=== PATIENT | male | born 1970 | race Two or more races ===

== ENCOUNTER 2017-03-14 01:58 | Emergency (ER) | payer OTHER ==
[2017-03-14] MEDS ORDERED: Ondansetron INJ* 2 MG/ML VIAL IV ONE (02:29)
[2017-03-14] MEDS ORDERED: Ketorolac INJ* 30 MG/ML 1 ML VIAL IV PUSH ONE (02:29)
[2017-03-14] MEDS ORDERED: NS 0.9% 1000 ML* 1,000 ML IV ONE ×2 (02:29→04:05)
[2017-03-14 02:56] LABS: Urine Bacteria Absent (Absent); Urine Bilirubin Negative (Negative); Urine Glucose Negative (Negative); Urine Nitrite Negative (Negative)
[2017-03-14 03:01] LABS: Hematocrit 44 % (42-52); Hemoglobin 14.6 g/dl (14.0-18.0); Mean Corpuscular HGB Conc 33 g/dl (31-36); Mean Corpuscular Hemoglobin 29 pg (27-31); Mean Corpuscular Volume 89 fL (80-94); Mean Platelet Volume 10 um3 (7.4-10.4); Red Blood Count 4.99 10^6/ul (4.0-5.4); Red Cell Distribution Width 14 % (10.5-15); White Blood Count 10.2 10^3/ul (3.5-10.8)
[2017-03-14 03:03] LABS: Albumin 4.5 g/dL (3.2-5.2); BUN/Creatinine Ratio 19.4 (8-20); Calcium 9.3 mg/dL (8.6-10.3); EGFR African American 99.6 (>60); EGFR Non-African American 77.4 (>60); Globulin 2.4 g/dL (2-4); Potassium 3.6 mmol/L (3.5-5.0); Total Bilirubin 0.6 mg/dL (0.2-1.0); Total Protein 6.9 g/dL (6.4-8.9)
[2017-03-14] MEDS ORDERED: Morphine INJ* 4 MG/ML 1 ML SYRINGE IV ONE (04:05)
[2017-03-14] MEDS ORDERED: oxyCODONE/Acetamin 5/325 MG* TAB PO ONE (05:02)
--- NOTE | 2017-03-14 05:02 | ED ---
Pura Savage Thomas, scribed for Colt Segal MD on 03/14/17 at 0230 . Abdominal Pain/Male - HPI Summary HPI Summary: The pt is a 47 y/o M presenting to the ED c/o flank pain that began at 00:00. He rates the pain 8/10. He additionally c/o nausea. The pt was driving back from [facility] when the pain suddenly began. The pt denies a Hx of kidney stones. NKDA. - History of Current Complaint Chief Complaint: EDFlankPain Stated Complaint: RIGHT FLANK PAIN Hx Obtained From: Patient Onset/Duration: Sudden Onset, Lasting Hours - began 00:00, Still Present Timing: Constant Pain Intensity: 8 Pain Scale Used: 0-10 Numeric Location: Flank Aggravating Factor(s): Nothing Alleviating Factor(s): Nothing Associated Signs And Symptoms: Positive: Nausea - Allergies/Home Medications Allergies/Adverse Reactions: Allergies Allergy/AdvReac Type Severity Reaction Status Date / Time No Known Allergies Allergy Verified 03/14/17 02:43 PMH/Surg Hx/FS Hx/Imm Hx Previously Healthy: Yes Sensory History: Denies: Hx Legally Blind EENT History: Denies: Hx Deafness Infectious Disease History: No Infectious Disease History: Denies: Traveled Outside the [place] in Last 30 Days - Family History Known Family History: Negative: Cardiac Disease, Diabetes - Social History Occupation: Employed Full-time Lives: With Family Review of Systems Constitutional: Negative Negative: Fever Eyes: Negative ENT: Negative Cardiovascular: Negative Respiratory: Negative Positive: Nausea, Other - POS: flank pain, sudden onset Genitourinary: Negative Musculoskeletal: Negative Skin: Negative Neurological: Negative Psychological: Normal All Other Systems Reviewed And Are Negative: Yes Physical Exam Triage Information Reviewed: Yes Vital Signs On Initial Exam: Initial Vitals Temp Pulse Resp BP Pulse Ox 98.3 F 70 18 114/70 99 03/14/17 02:06 03/14/17 02:06 03/14/17 02:06 03/14/17 02:06 03/14/17 02:06 Vital Signs Reviewed: Yes Appearance: Positive: Well-Appearing, Pain Distress - moderate discomfort Skin: Positive: Warm Eyes: Positive: MELINDA ENT: Positive: Hearing grossly normal Neck: Positive: Supple Respiratory/Lung Sounds: Positive: Breath Sounds Present Cardiovascular: Positive: RRR Abdomen Description: Positive: Nontender, Soft. Negative: CVA Tenderness (R), CVA Tenderness (L) Bowel Sounds: Positive: Present Musculoskeletal: Positive: Strength/ROM Intact Neurological: Positive: Sensory/Motor Intact, Normal Gait Diagnostics - Vital Signs Vital Signs Temp Pulse Resp BP Pulse Ox 03/14/17 02:06 98.3 F 70 18 114/70 99 - Laboratory Lab Results: Lab Results 03/14/17 03/14/17 03/14/17 Range/Units 02:15 02:40 02:40 WBC 10.2 (3.5-10.8) 10^3/ul RBC 4.99 (4.0-5.4) 10^6/ul Hgb 14.6 (14.0-18.0) g/dl Hct 44 (42-52) % MCV 89 (80-94) fL MCH 29 (27-31) pg MCHC 33 (31-36) g/dl RDW 14 (10.5-15) % Plt Count 205 (150-450) 10^3/ul MPV 10 (7.4-10.4) um3 Neut % (Auto) 82.0 (38-83) % Lymph % (Auto) 12.3 L (25-47) % [place] % (Auto) 4.6 (1-9) % Eos % (Auto) 0.4 (0-6) % Baso % (Auto) 0.7 (0-2) % Absolute Neuts (auto) 8.4 H (1.5-7.7) 10^3/ul Absolute Lymphs (auto) 1.3 (1.0-4.8) 10^3/ul Absolute Monos (auto) 0.5 (0-0.8) 10^3/ul Absolute Eos (auto) 0 (0-0.6) 10^3/ul Absolute Basos (auto) 0.1 (0-0.2) 10^3/ul Absolute Nucleated RBC 0.01 10^3/ul Nucleated RBC % 0 Sodium 135 (133-145) mmol/L Potassium 3.6 (3.5-5.0) mmol/L Chloride 102 (101-111) mmol/L Carbon Dioxide 24 (22-32) mmol/L Anion Gap 9 (2-11) mmol/L BUN 20 (6-24) mg/dL Creatinine 1.03 (0.67-1.17) mg/dL Est GFR ( Amer) 99.6 (>60) Est GFR (Non-Af Amer) 77.4 (>60) BUN/Creatinine Ratio 19.4 (8-20) Glucose 142 H (70-100) mg/dL Calcium 9.3 (8.6-10.3) mg/dL Total Bilirubin 0.60 (0.2-1.0) mg/dL AST 16 (13-39) U/L ALT 13 (7-52) U/L Alkaline Phosphatase 61 (34-104) U/L Total Protein 6.9 (6.4-8.9) g/dL Albumin 4.5 (3.2-5.2) g/dL Globulin 2.4 (2-4) g/dL Albumin/Globulin Ratio 1.9 (1-3) Urine Color Yellow Urine Appearance Cloudy Urine pH 6.0 (5-9) Ur Specific [place] 1.025 (1.010-1.030) Urine Protein 1+(30 mg/dl) H (Negative) Urine Ketones Trace H (Negative) Urine Blood 3+ H (Negative) Urine Nitrate Negative (Negative) Urine Bilirubin Negative (Negative) Urine Urobilinogen Negative (Negative) Ur Leukocyte Esterase Trace H (Negative) Urine WBC (Auto) Trace(0-5/hpf) (Absent) Urine RBC (Auto) 3+(>10/hpf) H (Absent) Ur Squamous Epith Cells Present H (Absent) Urine Bacteria Absent (Absent) Urine Glucose Negative (Negative) Result Diagrams: 03/14/17 02:40 03/14/17 02:40 Lab Statement: Any lab studies that have been ordered have been reviewed, and results considered in the medical decision making process. - CT CT Abd/Pel CT Interpretation: Positive (See Comments) - 0.6 cm cyst within the R lobe of the liver. Mild right obstructive uropathy that is secondary to a 0.4 cm stone at the right uretovesical junction. Small nonobstructing right renal stone. Normal appendix. No evidence of intestinal obstruction, performtion, colitis, pancreatitis, acute diverticular disease, or an intra-abdominal or pelvic abscess. Large colonic izabella burden. No free fluid. Tiny fat-containing umbilical hernia. Spina bifida occulta at L5. CT Interpretation Completed By: Radiologist Re-Evaluation - Re-Evaluation First Eval Re-Evaluation Time: 05:00 Change: Improved - results d/w pt Abdominal Pain Fem Course/Dx - Diagnoses Provider Diagnoses: Kidney stone Discharge - Discharge Plan Condition: Improved Disposition: HOME Prescriptions: Tamsulosin CAP* [Flomax CAP*] 0.4 mg PO BEDTIME #7 cap Patient Education Materials: Kidney Stones (ED) Referrals: Philippe Dean MD [Medical Doctor] - 3 Days The documentation as recorded by the Pura jane Thomas accurately reflects the service I personally performed and the decisions made by me, Colt Segal MD.
[2017-03-14 05:22] VITALS: BP 122/73
--- NOTE | 2017-03-14 08:13 | RAD ---
CLINICAL HISTORY: Right flank pain COMPARISON: None TECHNIQUE: Multiple contiguous axial CT scans were obtained of the abdomen and pelvis, without intravenous contrast enhancement. Coronal and sagittal multiplanar reformations are submitted for review. Oral contrast was not administered. FINDINGS: The study is limited by the lack of intravenous contrast. This limits evaluation of the solid organs and vasculature. LUNG BASES: The lung bases are clear. LIVER: The liver is normal in shape, size, contour, and attenuation. BILE DUCTS: There is no intrahepatic or extrahepatic biliary dilatation. GALLBLADDER: The gallbladder is normal, without pericholecystic inflammatory change. PANCREAS: The pancreas is normal, without mass or ductal dilatation. SPLEEN: Normal in size and appearance. UPPER GI TRACT: Evaluation of the gastrointestinal tract is limited by incomplete gastric distention. The upper GI tract is unremarkable. SMALL BOWEL AND MESENTERY: The small bowel is normal in contour, course, and caliber. There is no obstruction or dilatation. COLON: The colon is normal in contour, course, caliber. There is no pericolonic inflammatory change. There is a tubular, vermiform, hollow viscus that is blind ending, and originates from the cecum, consistent with a normal appendix. There is no periappendiceal inflammatory change. This is best seen on axial images 104 through 109 ADRENALS: Normal bilaterally. KIDNEYS: There is a 0.3 cm calculus of the midpole of the right kidney. There is a 0.4 cm focus of the right UVJ. There is minimal right hydroureter.. BLADDER: The bladder is smooth in contour. PELVIC ORGANS: The prostate gland is normal. The seminal vesicles are symmetric. AORTA: The aorta is normal. IVC: Unremarkable LYMPH NODES: There is no lymphadenopathy by size criteria. ABDOMINAL WALL: There is no evidence for abdominal wall hernia. BONES AND SOFT TISSUES: The bones and soft tissues are unremarkable. OTHER: None IMPRESSION: RIGHT NEPHROLITHIASIS INCLUDING 0.4 CM A RIGHT UVJ STONE. THERE IS MINIMAL RIGHT HYDROURETER.
== END 2017-03-14 05:24 | disposition home or self-care (01) ==
LOC: ED 01:58
DX: N20.0 Calculus of kidney (principal)
CPT/HCPCS: 36415; 74176; 80053; 81003; 81015; 85025; 87086; 96374; 96375; 99284; A9270-GY; J1885; J2270; J2405